=== PATIENT | male | born 1955 | race Caucasian/White ===

== ENCOUNTER 2020-01-06 15:04 | Inpatient (IN) ==
[2020-01-06] MEDS ORDERED: PIPERACILLIN/TAZOBACTAM 3.375 GM in DEXTROSE 5% 100 ML/100 ML BAG IV STA (16:41)
[2020-01-06] MEDS ORDERED: PIPERACILL/TAZOBAC CONSULT ACTIVE PRN ×2 (16:41→22:56)
[2020-01-06] MEDS ORDERED: VANCOMYCIN CONSULT ACTIVE PRN ×2 (16:41→22:56)
[2020-01-06] MEDS ORDERED: VANCOMYCIN HCL 2,000 MG in SODIUM CHLORIDE 0.9% 500 ML IV ONE (16:41)
[2020-01-06 18:46] LABS: Basophils # (auto) 0.04 K/uL (0-0.2); Basophils % (auto) 0.3 %; Eosinophils # (auto) 0.12 K/uL (0-0.5); Eosinophils % (auto) 0.9 %; Hematocrit (blood only) 40.4 % (42-52); Hemoglobin 14.3 g/dL (14.0-18.0); Immature Granulocytes # (auto) 0.04 K/uL (0.00-0.02); Immature Granulocytes % (auto) 0.3 %; Lymphocytes # (auto) 2.03 K/uL (1.2-3.4); Lymphocytes % (auto) 15.5 %; Mean Corpuscular Hemoglobin 32.3 pg (25-34); Mean Corpuscular Hgb Conc 35.4 g/dL (32-36); Mean Corpuscular Volume 91.2 fL (80-100); Mean Platelet Volume 8.9 fL (7.4-10.4); Monocytes # (auto) 0.95 K/uL (0.11-0.59); Monocytes % (auto) 7.3 %; Neutrophils # (auto) 9.92 K/uL (1.4-6.5); Neutrophils % (auto) 75.7 %; Platelet Count 268 K/uL (130-400); RDW Coefficient of Variation 12.5 % (11.5-14.5); RDW Standard Deviation 41.8 fL (36.4-46.3); Red Blood Count 4.43 M/uL (4.7-6.1)
[2020-01-06 19:06] LABS: Albumin Level 3.4 gm/dl (3.4-5.0); BUN Creatinine Ratio 18.1 (10-20); Calcium 9.4 mg/dl (8.5-10.1); Est GFR (African American) 92.7; Potassium 3.7 mmol/L (3.5-5.1)
[2020-01-06 19:08] LABS: Albumin Globulin Ratio 0.8 (0.9-2); Bilirubin,Total 0.4 mg/dl (0.2-1); Globulin 4.5 gm/dl (2.5-4.0); Total Protein 7.9 gm/dl (6.4-8.2)
--- NOTE | 2020-01-06 19:24 | Emergency Department Note ---
ED Visit Note I did evaluate and examine this patient myself. I did guide management for the patient. I agree with the PA's assessment as discussed. Please see the PAs dictation for further details. He appears to have a large abscess in his perineum. There is no crepitus. He has had fevers at home but no vomiting. He does not appear septic at this time. He has been on antibiotics at home. I did independently review the CT scan and blood work. His white count is elevated. CT shows cellulitis without evidence of drainable abscess. He will be hosp italized for IV antibiotics. He was given a dose of Zosyn IV here. .
[2020-01-06] MEDS ORDERED: IOVERSOL 100ml IV PRN (19:37)
--- NOTE | 2020-01-06 19:53 | CT Scan Report ---
Study: CT pelvis HISTORY: Groin and buttock infection FINDINGS: Nonobstructive bowel pattern. Normal appendix. Bladder is midline. No free fluid within the pelvic cul-de-sac. Significant soft tissue cellulitis medial aspect upper right thigh and perineum. No well-defined glut eal inflammatory process. No evidence for drainable abscess or collection. IMPRESSION: 1. Significant soft tissue/subcutaneous fat cellulitis involving the medial aspect of the upper right thigh, as well as perineum. 2. No evidence for drainable abscess or collection. 3. No evidence for muscular involvement. Electronically signed by: Xavi Weaver M.D. 01/06/2020 7:52 PM
--- NOTE | 2020-01-06 20:21 | Emergency Department Note ---
History of Present Illness General Chief complaint: Skin Problem Stated complaint: CYST Time Seen by Provider: 01/06/20 16:07 Source: patient Mode of arrival: ambulatory Limitations: no limitations History of Present Illness Maximum Pain Intensity: 7 This patient is a 64-year-old male who presents to the emergency department for evaluation of an infection of his buttock/groin. Patient states that 5 days ago, he noticed a small painful area under his right buttock. He was seen by his primary care provider and prescribed Keflex. He states that since then, the area has been progressively becoming larger, more red and painful. He has had some chills and reports a temperature up to 101F at home. He has been taking Tylenol for the fever. He reports generalized chills and aches. Patient was seen by his primary care provider and sent here to have the area possibly drained surgically. He rates his current discomfort a 7/10. He denies any history of similar infections. Patient has had a prior partial colectomy due to a history of diverticulitis performed by Dr. Dillard. Home Medications Home Medications Medication Instructions Recorded Confirmed Type enalapril-hydrochlorothiazide 1 tab PO PM 10/24/19 01/06/20 History cephalexin [Keflex] 500 mg PO QID 01/06/20 01/06/20 History Allergies Allergy/AdvReac Type Severity Reaction Status Date / Time No Known Allergies Allergy Verified 01/06/20 20:11 Past Med/Surg History Medical History Diverticular disease Hypertension Surgical History History of colon resection Social History Preferred Language: Tajik Communication Ability: Effective Meteorological Technician Required: No Beliefs That Will Affect Care: None marital status: / Current Living Situation: Alone Feels Safe at Home: Yes Smoking Status: Never smoker Do You Dip or Chew Tobacco: No ; Second Hand Exposure: No ; Hx Alcohol Use: No Hx Substance Use: No Review of Systems A total of 10 systems reviewed and were otherwise negative Physical Exam Vital Signs Vital Signs - 24 hr 01/06/20 15:53 01/06/20 16:38 01/06/20 18:38 Temperature 36.7 C Temperature Source Oral Pulse Rate 85 Pulse Rate [Right Finger] 82 83 Respiratory Rate 18 20 20 Respiratory Effort / Characteristics Non-Labored Spontaneous Non-Labored Spontaneous Non-Labored Spontaneous Respiratory Depth Normal Normal Normal Respiratory Pattern Regular Regular Blood Pressure 182/83 H Blood Pressure [Right Arm] 169/87 H 157/84 H Blood Pressure Mean 116 Blood Pressure Mean [Right Arm] 114 108 Blood Pressure Position Sitting Pulse Oximetry 96 98 97 Oxygen Delivery Method Room Air Room Air Room Air Sepsis Recent Fever Within 48 Hours Yes Sepsis New/Unexplained Change in Mental Status No Sepsis Action Taken by Nursing No Action Required VITALS: Vitals are noted on the nurse's note and reviewed by myself. GENERAL: This is a 64-year-old male, in no acute distress, nondiaphoretic, well- developed well-nourished. SKIN: There is extensive erythema, induration and tenderness in the right groin/perineum extending from the right buttock into the groin. There is no palpable fluctuance. No drainage. EARS: External auditory canals clear, tympanic membranes pearly calderón without erythema or effusion bilaterally. EYES: Pupils equal round and reactive to light and accommodation. MOUTH: Mucous membranes moist. NECK: Supple without nuchal rigidity. No lymphadenopathy. HEART: Regular rate and rhythm without murmurs gallops or rubs. LUNGS: Clear to auscultation bilaterally without wheezes, rales or rhonchi. ABDOMEN: Positive bowel sounds x 4. Soft, nontender to palpation. MUSCULOSKELETAL: Full range of motion throughout. NEURO: Patient was alert and oriented to person place and time. Course Consultations Consultation #1: Dr. Metz - [facility] hospitalist Administered Medications Acetaminophen (Tylenol) 650 mg PO Q4H PRN PRN Reason: pain/fever Stop: 02/05/20 22:55 Last Admin: 01/08/20 23:32 Dose: 650 mg Documented by: [id number] Admin: 01/08/20 13:42 Dose: 650 mg Documented by: [id number] Admin: 01/08/20 05:55 Dose: 650 mg Documented by: [id number] Admin: 01/07/20 22:20 Dose: 650 mg Documented by: [id number] Admin: 01/07/20 14:26 Dose: 650 mg Documented by: [id number] Admin: 01/07/20 06:05 Dose: 650 mg Documented by: [id number] Admin: 01/06/20 23:25 Dose: 650 mg Documented by: [id number] Enalapril Maleate (Vasotec) 10 mg PO PM GIOVANNY Stop: 02/05/20 22:59 Last Admin: 01/08/20 20:22 Dose: 10 mg Documented by: [id number] Admin: 01/07/20 22:15 Dose: 10 mg Documented by: [id number] Admin: 01/06/20 23:25 Dose: 10 mg Documented by: [id number] Hydrochlorothiazide (Hctz) 25 mg PO PM GIOVANNY Stop: 02/05/20 22:59 Last Admin: 01/08/20 20:21 Dose: 25 mg Documented by: [id number] Admin: 01/07/20 22:14 Dose: 25 mg Documented by: [id number] Admin: 01/06/20 23:26 Dose: 25 mg Documented by: [id number] Ioversol (Optiray 320 100ml) 94 ml IV ONCE PRN PRN Reason: Interaction Checking Stop: 01/10/20 19:36 Last Admin: 01/06/20 19:37 Dose: 94 ml Documented by: [id number] Morphine Sulfate (Morphine Sulfate) 2 mg IV Q3H PRN PRN Reason: Pain Stop: 01/22/20 00:49 Last Admin: 01/08/20 21:32 Dose: 2 mg Documented by: [id number] Admin: 01/08/20 00:54 Dose: 2 mg Documented by: [id number] Discontinued Medications Vancomycin HCl 2,000 mg/ (Sodium Chloride) 540 mls @ 200 mls/hr IV NOW ONE Stop: 01/06/20 19:22 Last Infusion: 01/06/20 21:43 Dose: 0 mls/hr Documented by: [id number] Admin: 01/06/20 18:34 Dose: 200 mls/hr Documented by: [id number] Piperacillin Sod/Tazobactam (Sod 3.375 gm/ Dextrose) 100 ml in 115 mls @ 230 mls/hr IV NOW STA Stop: 01/06/20 17:10 Last Infusion: 01/06/20 21:10 Dose: 0 mls/hr Documented by: [id number] Admin: 01/06/20 18:34 Dose: 230 mls/hr Documented by: [id number] Piperacillin Sod/Tazobactam (Sod 3.375 gm/ Dextrose) 115 mls @ 28.75 mls/hr IV Q8H GIOVANNY Stop: 01/14/20 00:00 Last Infusion: 01/07/20 12:00 Dose: 0 mls/hr Documented by: [id number] Admin: 01/07/20 08:11 Dose: 28.8 mls/hr Documented by: [id number] Infusion: 01/07/20 03:27 Dose: 0 mls/hr Documented by: [id number] Admin: 01/06/20 23:27 Dose: 28.8 mls/hr Documented by: [id number] Vancomycin HCl 1,250 mg/ (Sodium Chloride) 275 mls @ 125 mls/hr IV Q12H GIOVANNY Stop: 01/14/20 05:59 Last Infusion: 01/07/20 08:10 Dose: 0 mls/hr Documented by: [id number] Admin: 01/07/20 06:00 Dose: 125 mls/hr Documented by: [id number] Vancomycin HCl 1,250 mg/ (Sodium Chloride) 275 mls @ 125 mls/hr IV Q8H GIOVANNY Stop: 01/14/20 13:59 Last Infusion: 01/08/20 08:45 Dose: 0 mls/hr Documented by: [id number] Admin: 01/08/20 06:27 Dose: 125 mls/hr Documented by: [id number] Infusion: 01/08/20 00:44 Dose: 0 mls/hr Documented by: [id number] Infusion: 01/07/20 22:50 Dose: 125 mls/hr Documented by: [id number] Admin: 01/07/20 22:15 Dose: 125 mls/hr Documented by: [id number] Infusion: 01/07/20 16:33 Dose: 0 mls/hr Documented by: [id number] Admin: 01/07/20 13:45 Dose: 125 mls/hr Documented by: [id number] Vancomycin HCl 1,250 mg/ (Sodium Chloride) 275 mls @ 125 mls/hr IV Q12H GIOVANNY Stop: 01/14/20 19:59 Last Infusion: 01/09/20 10:29 Dose: 0 mls/hr Documented by: [id number] Admin: 01/09/20 08:08 Dose: 125 mls/hr Documented by: [id number] Infusion: 01/08/20 21:32 Dose: 0 mls/hr Documented by: [id number] Admin: 01/08/20 19:13 Dose: 125 mls/hr Documented by: [id number] Morphine Sulfate (Morphine Sulfate) 4 mg IV NOW STA Stop: 01/06/20 20:45 Last Admin: 01/06/20 21:05 Dose: 4 mg Documented by: [id number] Trimethoprim/Sulfamethoxazole (Septra Ds 800/160mg Tab) 1 tab PO NOW ONE Stop: 01/09/20 13:22 Last Admin: 01/09/20 14:12 Dose: 1 tab Documented by: [id number] Medical Decision Making Differential Diagnosis Differential diagnosis includes cellulitis, abscess, familia's gangrene, necrotizing fasciitis, perirectal abscess, among others. Home Medications Current Medication List: was personally reviewed by me Laboratory Data Attestation: I reviewed the patient's lab results. Result diagrams: 01/08/20 06:04 01/09/20 06:07 Lab Results 01/06/20 01/06/20 01/06/20 Range/Units 18:25 18:25 18:25 WBC 13.10 H (4.8-10.8) K/uL RBC 4.43 L (4.7-6.1) M/uL Hgb 14.3 (14.0-18.0) g/dL Hct 40.4 L (42-52) % MCV 91.2 (80-100) fL MCH 32.3 (25-34) pg MCHC 35.4 (32-36) g/dL RDW Std Deviation 41.8 (36.4-46.3) fL RDW Coeff of [place] 12.5 (11.5-14.5) % Plt Count 268 (130-400) K/uL MPV 8.9 (7.4-10.4) fL Immature Gran % (Auto) 0.3 % Neut % (Auto) 75.7 % Lymph % (Auto) 15.5 % [place] % (Auto) 7.3 % Eos % (Auto) 0.9 % Baso % (Auto) 0.3 % Immature Gran # (Auto) 0.04 H (0.00-0.02) K/uL Neut # (Auto) 9.92 H (1.4-6.5) K/uL Lymph # (Auto) 2.03 (1.2-3.4) K/uL [place] # (Auto) 0.95 H (0.11-0.59) K/uL Eos # (Auto) 0.12 (0-0.5) K/uL Baso # (Auto) 0.04 (0-0.2) K/uL Sodium 136 (136-145) mmol/L Potassium 3.7 (3.5-5.1) mmol/L Chloride 101 (98-107) mmol/L Carbon Dioxide 29 (21-32) mmol/L Anion Gap 6.0 (3-11) BUN 18 (7-18) mg/dl Creatinine 0.98 (0.6-1.4) mg/dl Est Cr Clr Drug Dosing 86.0 ml/min Est GFR ( Amer) 92.7 Est GFR (Non-Af Amer) 80.0 BUN/Creatinine Ratio 18.1 (10-20) Glucose 87 (70-99) mg/dl Lactate 1.1 (0.4-2.0) mmol/L Calcium 9.4 (8.5-10.1) mg/dl Total Bilirubin 0.4 (0.2-1) mg/dl AST 10 L (15-37) U/L ALT 20 (12-78) U/L Alkaline Phosphatase 74 (45-117) U/L Total Protein 7.9 (6.4-8.2) gm/dl Albumin 3.4 (3.4-5.0) gm/dl Globulin 4.5 H (2.5-4.0) gm/dl Albumin/Globulin Ratio 0.8 L (0.9-2) Imaging Data Attestation: I personally reviewed and interpreted this imaging study as follows: Radiologist's Impression: Study: CT pelvis HISTORY: Groin and buttock infection FINDINGS: Nonobstructive bowel pattern. Normal appendix. Bladder is midline. No free fluid within the pelvic cul-de-sac. Significant soft tissue cellulitis medial aspect upper right thigh and perineum. No well-defined gluteal inflammatory process. No evidence for drainable abscess or collection. IMPRESSION: 1. Significant soft tissue/subcutaneous fat cellulitis involving the medial aspect of the upper right thigh, as well as perineum. 2. No evidence for drainable abscess or collection. 3. No evidence for muscular involvement. Blood Pressure Blood Pressure Findings: Normal blood pressure Blood Pressure Disposition: did not require urgent referral MDM Narrative The patient is a 64-year-old male who presents today complaining of infection of the buttock/upper leg. On exam, patient appears to have an extensive cellulitis extending from the perineum into the upper thigh. Labs revealed leukocytosis, no anemia or concerning electrolyte abnormalities. Kidney function was within normal limits. Lactic acid was not elevated. Blood cultures were drawn and patient was started on vancomycin and Zosyn. CT of the pelvis was performed and showed extensive cellulitis with no abscess. Given the extent of this infection and failed outpatient therapy with cephalexin, the case was discussed with the [facility] hospitalist to evaluate the patient for further care. The patientwas independently evaluated by Dr. Shin, who agreed with my evaluation and treatment plan. Impression & Plan Cellulitis of perineum Discharge Plan Visit Data *Final* Discharge Date/Time: 01/06/20 22:31 Chief Complaint: Skin Problem Stated Complaint: CYST ED Provider: Andres Shin ED Midlevel Provider: Alison Cisneros Discharge Problem: Cellulitis of perineum Patient Disposition: Admitted As Inpatient Discharge Instructions Interventions: ED Discharge Assessment Last Done: 01/06/20 22:31
[2020-01-06] MEDS ORDERED: MoRPHine SULFATE 4 MG/ML 1 ML CARP\\VIAL IV STA (20:44)
--- NOTE | 2020-01-06 22:08 | History & Physical Report ---
Date of Service January 06, 2020 Assessment & Plan (1) Cellulitis of right thigh: Cellulitis of right thigh and perineum- Continue vancomycin IV and Zosyn IV begun in the ED CT of pelvis does not demonstrate any drainable area of fluid collection. Present on Admission?: Yes (2) Cellulitis of perineum: See above Present on Admission?: Yes (3) Hypertension: Continue enalapril/HCTZ daily. Present on Admission?: Yes History of Present Illness Chief Complaint: The patient presents to the emergency department due to concerns regarding an infection in his buttock and groin area Primary Care Provider: Ron Eagle MD The patient is a 64-year-old male with a past medical history including hypertension and macular hole left eye, who presents to the emergency department with 5 days of worsening right upper thigh and groin and perineum redness, swelling, pain. 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 He was then seen by his PCP and placed on Keflex 500 mg p.o. 4 times daily, and when his lesion continued to spread, he presents emergency department tonight. 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 Beliefs That Will Affect Care: None Current Living Situation: Alone Feels Safe at Home: Yes Smoking Status: Never smoker Do You Dip or Chew Tobacco: No ; Second Hand Exposure: No ; Hx Alcohol Use: No Hx Substance Use: No Review of Systems Review of Systems: The patient denies chest pain, palpitations, shortness of breath, dyspnea on exertion, cough, sore throat, nausea, vomiting, diarrhea , constipation, abdominal pain, blood in urine or stool, dysuria, urinary frequency or urgency, lightheadedness, dizziness, headache, memory loss, loss of consciousness, rash, abnormal bruising or bleeding, imbalance, focal or generalized weakness, numbness or tingling in arms or legs, back or neck pain, or night sweats. The review of systems is otherwise negative other than for that already noted above, and at least 10 systems have been reviewed. Physical Exam Physical Exam: The patient is awake, alert and oriented 3, looks mildly diaphoretic, normocephalic and atraumatic, lying in bed and in no acute distress. HEENT--PERRL, EOMI, mucous membranes and oropharynx dry. Neck--supple. No JVD. No bruits. Thyroid normal, trachea midline, no adenopathy. Heart--normal S1 and S2. No murmurs, rubs or gallops. Lungs--clear bilaterally, no respiratory distress, no accessory muscle use. Abdomen--normal bowel sounds and soft. Nontender. Nondistended. Extremities/ Dermatologic--right upper extremity medial aspect of thigh deep erythema, and perineum with similar erythema and mild fluctuance. Neurologic--cranial nerves II through XII grossly intact. Rheumatologic--normal range of motion. Psychiatric--normal affect. Results & Data Vital Signs (Past 12 Hours) Vital Signs Temp Pulse Pulse Resp BP BP Pulse Ox 01/06/20 21:05 89 20 148/84 H 98 01/06/20 18:38 83 20 157/84 H 97 01/06/20 16:38 82 20 169/87 H 98 01/06/20 15:53 98.1 F 85 18 182/83 H 96 Laboratory Results Laboratory Results WBC 13.10 K/uL (4.8-10.8) H 01/06/20 18:25 RBC 4.43 M/uL (4.7-6.1) L 01/06/20 18:25 Hgb 14.3 g/dL (14.0-18.0) 01/06/20 18:25 Hct 40.4 % (42-52) L 01/06/20 18:25 MCV 91.2 fL (80-100) 01/06/20 18:25 MCH 32.3 pg (25-34) 01/06/20 18:25 MCHC 35.4 g/dL (32-36) 01/06/20 18:25 RDW Std Deviation 41.8 fL (36.4-46.3) 01/06/20 18:25 RDW Coeff of [place] 12.5 % (11.5-14.5) 01/06/20 18: Plt Count 268 K/uL (130-400) 01/06/20 18:25 MPV 8.9 fL (7.4-10.4) 01/06/20 18:25 Immature Gran % (Auto) 0.3 % 01/06/20 18:25 Neut % (Auto) 75.7 % 01/06/20 18:25 Lymph % (Auto) 15.5 % 01/06/20 18:25 [place] % (Auto) 7.3 % 01/06/20 18:25 Eos % (Auto) 0.9 % 01/06/20 18:25 Baso % (Auto) 0.3 % 01/06/20 18:25 Immature Gran # (Auto) 0.04 K/uL (0.00-0.02) H 01/06/20 18:25 Neut # (Auto) 9.92 K/uL (1.4-6.5) H 01/06/20 18:25 Lymph # (Auto) 2.03 K/uL (1.2-3.4) 01/06/20 18:25 [place] # (Auto) 0.95 K/uL (0.11-0.59) H 01/06/20 18:25 Eos # (Auto) 0.12 K/uL (0-0.5) 01/06/20 18:25 Baso # (Auto) 0.04 K/uL (0-0.2) 01/06/20 18:25 Sodium 136 mmol/L (136-145) 01/06/20 18:25 Potassium 3.7 mmol/L (3.5-5.1) 01/06/20 18:25 Chloride 101 mmol/L (98-107) 01/06/20 18:25 Carbon Dioxide 29 mmol/L (21-32) 01/06/20 18:25 Anion Gap 6.0 (3-11) 01/06/20 18:25 BUN 18 mg/dl (7-18) 01/06/20 18:25 Creatinine 0.98 mg/dl (0.6-1.4) 01/06/20 18:25 Est Cr Clr Drug Dosing 86.0 ml/min 01/06/20 18:25 Est GFR ( Amer) 92.7 01/06/20 18:25 Est GFR (Non-Af Amer) 80.0 01/06/20 18:25 BUN/Creatinine Ratio 18.1 (10-20) 01/06/20 18:25 Glucose 87 mg/dl (70-99) 01/06/20 18:25 Lactate 1.1 mmol/L (0.4-2.0) 01/06/20 18:25 Calcium 9.4 mg/dl (8.5-10.1) 01/06/20 18:25 Total Bilirubin 0.4 mg/dl (0.2-1) 01/06/20 18:25 AST 10 U/L (15-37) L 01/06/20 18:25 ALT 20 U/L (12-78) 01/06/20 18:25 Alkaline Phosphatase 74 U/L (45-117) 01/06/20 18:25 Total Protein 7.9 gm/dl (6.4-8.2) 01/06/20 18:25 Albumin 3.4 gm/dl (3.4-5.0) 01/06/20 18:25 Globulin 4.5 gm/dl (2.5-4.0) H 01/06/20 18:25 Albumin/Globulin Ratio 0.8 (0.9-2) L 01/06/20 18:25 Diagnostic Findings [place], [place] [phone] CT Scan Report Patient: SKINNY LOCKE JAdmit Date: 01/06/20 MR#: [id number]: [address] [facility] [address] Acct ID:[id number]: Date: 1955[facility] Zip: [id number] Age: 64Location: ED Sex: M Room/Bed: Att Phy:Diagnosis: CYST Corina Phy: Ron Moore M.D.Service Date: 01/06/20 Fam Phy:Interpreting Phy: Xavi Weaver MD Admit Phy: Ordering Phy: Alison Cisneros PA-C cc: ~ Study: CT pelvis HISTORY: Groin and buttock infection FINDINGS: Nonobstructive bowel pattern. Normal appendix. Bladder is midline. No free fluid within the pelvic cul-de-sac. Significant soft tissue cellulitis medial aspect upper right thigh and perineum. No well-defined gluteal inflammatory process. No evidence for drainable abscess or collection. IMPRESSION: 1. Significant soft tissue/subcutaneous fat cellulitis involving the medial aspect of the upper right thigh, as well as perineum. 2. No evidence for drainable abscess or collection. 3. No evidence for muscular involvement. Electronically signed by: Xavi Weaver M.D. 01/06/2020 7:52 PM Dictated: 01/06/201948 Transcribed: 01/06/201948 Code Status & VTE Plan Code Status Full code VTE Prophylaxis Plan VTE Prophylaxis will be ordered: Yes PG Care Time/CCT Total # of Minutes Spent Total Time Spent with Patient: Total time spent is greater than 50% in coordination of care (as documented) at patient's floor/unit and/or counseling patient: Coding Level of Care Code 27199 Initial Inpt Care Lvl 2 Diagnoses Cellulitis of right thigh L03.115 Cellulitis of perineum L03.315 Hypertension I10
[2020-01-06] MEDS ORDERED: ALUMINUM/MAGNESIUM SUSP 30 ML UDC PO PRN (22:56)
[2020-01-06] MEDS ORDERED: ONDANSETRON INJ 2 MG/ML 2 ML VIAL IV PRN (22:56)
[2020-01-06] MEDS ORDERED: VANCOMYCIN HCL 1,000 MG in SODIUM CHLORIDE 0.9% 250 ML IV SCH (22:56)
[2020-01-06] MEDS ORDERED: MAGNESIUM HYDROXIDE SUSP 30 ML UDC PO PRN (22:56)
[2020-01-06] MEDS: ENALAPRIL MALEATE 10 MG TAB PO SCH (23:25)
[2020-01-06] MEDS: ACETAMINOPHEN 325 MG TAB PO PRN (23:25)
[2020-01-06] MEDS: hydroCHLOROthiazide 25 MG TAB PO SCH (23:26)
[2020-01-06] MEDS: PIPERACILLIN/TAZOBACTAM 3.375 GM in DEXTROSE 5% 100 ML IV SCH (23:27)
[2020-01-07] MEDS ORDERED: VANCOMYCIN HCL 1,250 MG in SODIUM CHLORIDE 0.9% 250 ML IV SCH (06:00)
[2020-01-07] MEDS: ACETAMINOPHEN 325 MG TAB PO PRN ×3 (06:05→22:20)
[2020-01-07] MEDS: PIPERACILLIN/TAZOBACTAM 3.375 GM in DEXTROSE 5% 100 ML IV SCH (08:11)
[2020-01-07 09:00] LABS: Basophils # (auto) 0.04 K/uL (0-0.2); Basophils % (auto) 0.3 %; Eosinophils # (auto) 0.13 K/uL (0-0.5); Eosinophils % (auto) 1.1 %; Hematocrit (blood only) 40.7 % (42-52); Hemoglobin 13.9 g/dL (14.0-18.0); Immature Granulocytes # (auto) 0.05 K/uL (0.00-0.02); Immature Granulocytes % (auto) 0.4 %; Lymphocytes # (auto) 1.83 K/uL (1.2-3.4); Lymphocytes % (auto) 15.9 %; Mean Corpuscular Hemoglobin 31.7 pg (25-34); Mean Corpuscular Hgb Conc 34.2 g/dL (32-36); Mean Corpuscular Volume 92.9 fL (80-100); Monocytes # (auto) 0.91 K/uL (0.11-0.59); Monocytes % (auto) 7.9 %; Neutrophils # (auto) 8.58 K/uL (1.4-6.5); Neutrophils % (auto) 74.4 %; Platelet Count 272 K/uL (130-400); RDW Coefficient of Variation 12.8 % (11.5-14.5); RDW Standard Deviation 43.4 fL (36.4-46.3); Red Blood Count 4.38 M/uL (4.7-6.1); White Blood Count 11.54 K/uL (4.8-10.8)
--- NOTE | 2020-01-07 09:32 | Pharmacy Report ---
Pharmacy Abx Initial Consult - Date of Service January 07, 2020 - Pharmacy Dosing Scope Date of Consult: 01/06/2020 Consultation requested by: Dr. Metz Pharmacy is consulted to initiate vancomycin/zosyn IV dosing therapy, order appropriate labs and adjust drug dose/frequency. - Subjective The patient is a 64 year old M admitted on 01/06/20 22:07 with worsening cellulitis in R thigh, perineum, and groin area. No abscess visible on CT. - Objective Height: 5 ft 10 in Weight: 94.1 kg Vital Signs (Past 12hrs): Vital Signs Temp Pulse Pulse Pulse Resp BP BP 01/07/20 07:20 36.8 C 64 16 112/62 01/07/20 00:40 01/06/20 23:00 36.8 C 83 18 01/06/20 22:56 01/06/20 22:31 81 20 177/88 H BP Pulse Ox 01/07/20 07:20 94 01/07/20 00:40 128/74 01/06/20 23:00 189/94 H 98 01/06/20 22:56 174/91 H 01/06/20 22:31 98 Lab Results (24hrs): Laboratory Tests (24 Hours) 01/07/20 01/06/20 01/06/20 08:28 18:25 18:25 WBC 11.54 H 13.10 H Neut # (Auto) 8.58 H 9.92 H Creatinine 0.98 Est Cr Clr Drug Dosing 86.0 Micro Results: 01/06/20 18:00 Aerobic Blood Culture - Pending Blood Anaerobic Blood Culture - Pending 01/06/20 18:10 Aerobic Blood Culture - Pending Blood Anaerobic Blood Culture - Pending - Risk Factors for Resistance * Antimicrobial use within the last 90 days (Keflex) - Assessment & Plan Assessment 64 year old M admitted with worsening cellulitis in R thigh, perineum, and groin area. He was placed on Keflex per PCP. When not improved, PCP sent patient to the hospital. CT negative for abscess. Broad spectrum antibiotics started. Plan vancomycin/Zosyn for treatment of cellulitis Vancomycin IV * Patient meets criteria for vancomycin AUC dosing nomogram * AUC/NYASIA is the preferred PK/PD target for vancomycin * Target AUC/NYASIA = 400-600 * AUC guided dosing is effective and associated with decreased risk of nephrotoxicity * Trough levels poorly correlate with AUC/NYASIA and trough monitoring has been associated with increased risk of nephrotoxicity Piperacillin/tazobactam * 3.375 g bolus administered over 30 minutes, then 3.375 g IV extended infusion every 8 hours for CrCl greater than 20 mL/min OR every 12 hours for CrCl 20 mL/min or less and dialysis. Pharmacy will continue to follow and will adjust dose/frequency as necessary. Thank you.
--- NOTE | 2020-01-07 12:38 | Hospitalist Progress Note ---
Date of Service January 07, 2020 Assessment & Plan (1) Cellulitis of perineum: 64 yo M with HTN here for worsening cellulitis of perineum which failed outpatient treatment of keflex. 1. Perineal Cellulitis - CT pelvis showed no muscle involvement, no abscess formation, cellulitis of fat on right perineum and medial thigh - discontinued zosyn, continuing with vanc for mrsa coverage - monitor progress 2. HTN - continuing home medications of enalapril 10 mg PO DVT: SCDs Diet: regular Code: Full code (2) Hypertension: Admission and Anticipated Discharge Date Admission Date: January 06, 2020 Supervising Physician Co-Signing Physician Notes I personally examined the patient and verified all peralta points of history and exam, discussed case, and agree with decision making with Dr Geogre. Feeling better. Notes over the last few hours she feels like his pain is starting to improve. Pleased with progress so far. Vitals noted, in general he is awake and alert pleasant no distress. HEENT normocephalic atraumatic mucous membranes moist. Breathing unlabored no accessory muscle use good effort. Skin shows medial right buttock to be erythematous with a bright maroon somewhat tender although not exquisitely so, with a thin yellow layer on top that seems to be weeping, no focal palpable fluid collections. Cellulitis of the medial buttockfailed Keflex. Given nonpurulent as far as no drainable abscess, suspect resistant strep greater than resistant staph. Currently vancomycin would cover for both. He is showing improvement, given the high risk area that was infected we will definitely want to continue vancomycin until there is clear and ongoing improvement. Fortunately CT did not show extension deeper or any drainable abscess. Otherwise as above. Subjective 64yo M with HTN otherwise healthy, admitted to the hospital after worsening cellulitis and failure of outpatient treatment of 4-5 days of keflex. At this time, describing baseline pain with radiation from perineum posteriorly towards buttocks and anteriorly to right inguinal region. Experienced fevers and night sweats at beginning of illness prior to starting antibiotics; no longer experiencing them. Denies any cough, chest pain, palpitations. No previous infection similar to this, no allergies to antibiotics, previous surgeries include colectomy for diverticulitis. Review of Systems Constitutional: no fever, no chills, no body aches, no fatigue, no weakness and no anorexia Respiratory: no cough and no dyspnea Cardiovascular: no chest pain, no dyspnea on exertion and no palpitations Gastrointestinal: no abdominal pain, no nausea, no vomiting, no constipation, no diarrhea/loose stools and no blood in stools Genitourinary: + genital pain (perineum/buttock region) Physical Exam Constitutional: well developed and well nourished; no acute distress Skin: Red, swollen, inflamed area of perineum to the inferior buttock on right side with clear demarcation of erythema. No fluctuance, no open draining pustules or abscesses. No crossing over midline. No involvement of scrotum or penis. Results & Data ([facility]) Vital Signs (Past 12 Hours) Vital Signs Temp Pulse Resp BP BP Pulse Ox 01/07/20 07:20 36.8 C 64 16 112/62 94 01/07/20 00:40 128/74 01/07/20 01/07/20 01/07/20 Range/Units 08:40 08:28 08:28 WBC 11.54 H (4.8-10.8) K/uL RBC 4.38 L (4.7-6.1) M/uL Hgb 13.9 L (14.0-18.0) g/dL Hct 40.7 L (42-52) % MCV 92.9 (80-100) fL MCH 31.7 (25-34) pg MCHC 34.2 (32-36) g/dL RDW Std Deviation 43.4 (36.4-46.3) fL RDW Coeff of [place] 12.8 (11.5-14.5) % Plt Count 272 (130-400) K/uL MPV 9.0 (7.4-10.4) fL Immature Gran % (Auto) 0.4 % Neut % (Auto) 74.4 % Lymph % (Auto) 15.9 % [place] % (Auto) 7.9 % Eos % (Auto) 1.1 % Baso % (Auto) 0.3 % Immature Gran # (Auto) 0.05 H (0.00-0.02) K/uL Neut # (Auto) 8.58 H (1.4-6.5) K/uL Lymph # (Auto) 1.83 (1.2-3.4) K/uL [place] # (Auto) 0.91 H (0.11-0.59) K/uL Eos # (Auto) 0.13 (0-0.5) K/uL Baso # (Auto) 0.04 (0-0.2) K/uL Sodium (136-145) mmol/L Potassium (3.5-5.1) mmol/L Chloride (98-107) mmol/L Carbon Dioxide (21-32) mmol/L Anion Gap (3-11) BUN (7-18) mg/dl Creatinine (0.6-1.4) mg/dl Est Cr Clr Drug Dosing ml/min Est GFR ( Amer) Est GFR (Non-Af Amer) BUN/Creatinine Ratio (10-20) Glucose (70-99) mg/dl Lactate (0.4-2.0) mmol/L Calcium (8.5-10.1) mg/dl Total Bilirubin (0.2-1) mg/dl AST (15-37) U/L ALT (12-78) U/L Alkaline Phosphatase (45-117) U/L Total Protein (6.4-8.2) gm/dl Albumin (3.4-5.0) gm/dl Globulin (2.5-4.0) gm/dl Albumin/Globulin Ratio (0.9-2) Nasal Screen MRSA (PCR) Negative (Negative) Hepatitis C Ab Screen Neg (Neg) 01/06/20 01/06/20 01/06/20 Range/Units 18:25 18:25 18:25 WBC 13.10 H (4.8-10.8) K/uL RBC 4.43 L (4.7-6.1) M/uL Hgb 14.3 (14.0-18.0) g/dL Hct 40.4 L (42-52) % MCV 91.2 (80-100) fL MCH 32.3 (25-34) pg MCHC 35.4 (32-36) g/dL RDW Std Deviation 41.8 (36.4-46.3) fL RDW Coeff of [place] 12.5 (11.5-14.5) % Plt Count 268 (130-400) K/uL MPV 8.9 (7.4-10.4) fL Immature Gran % (Auto) 0.3 % Neut % (Auto) 75.7 % Lymph % (Auto) 15.5 % [place] % (Auto) 7.3 % Eos % (Auto) 0.9 % Baso % (Auto) 0.3 % Immature Gran # (Auto) 0.04 H (0.00-0.02) K/uL Neut # (Auto) 9.92 H (1.4-6.5) K/uL Lymph # (Auto) 2.03 (1.2-3.4) K/uL [place] # (Auto) 0.95 H (0.11-0.59) K/uL Eos # (Auto) 0.12 (0-0.5) K/uL Baso # (Auto) 0.04 (0-0.2) K/uL Sodium 136 (136-145) mmol/L Potassium 3.7 (3.5-5.1) mmol/L Chloride 101 (98-107) mmol/L Carbon Dioxide 29 (21-32) mmol/L Anion Gap 6.0 (3-11) BUN 18 (7-18) mg/dl Creatinine 0.98 (0.6-1.4) mg/dl Est Cr Clr Drug Dosing 86.0 ml/min Est GFR ( Amer) 92.7 Est GFR (Non-Af Amer) 80.0 BUN/Creatinine Ratio 18.1 (10-20) Glucose 87 (70-99) mg/dl Lactate 1.1 (0.4-2.0) mmol/L Calcium 9.4 (8.5-10.1) mg/dl Total Bilirubin 0.4 (0.2-1) mg/dl AST 10 L (15-37) U/L ALT 20 (12-78) U/L Alkaline Phosphatase 74 (45-117) U/L Total Protein 7.9 (6.4-8.2) gm/dl Albumin 3.4 (3.4-5.0) gm/dl Globulin 4.5 H (2.5-4.0) gm/dl Albumin/Globulin Ratio 0.8 L (0.9-2) Nasal Screen MRSA (PCR) (Negative) Hepatitis C Ab Screen (Neg) Resident Activity Tracking Resident Involvement: Resident Care Provided Care Provided: Adult Hospital Medicine
[2020-01-07] MEDS: VANCOMYCIN HCL 1,250 MG in SODIUM CHLORIDE 0.9% 250 ML IV SCH ×2 (13:45→22:15)
--- NOTE | 2020-01-07 15:50 | Electrocardiogram Report ---
Test Reason : Blood Pressure : / mmHG Vent. Rate : 081 BPM Atrial Rate : 081 BPM P-R Int : 166 ms QRS Dur : 088 ms QT Int : 382 ms P-R-T Axes : 035 -02 050 degrees QTc Int : 443 ms Normal sinus rhythm Normal ECG When compared with ECG of 06-JAN-2015 10:16, No significant change was found Confirmed by Leon Green ([id number]) on 01/07/2020 3:49:54 PM Referred By: Ron Eagle Confirmed By:Leon Green
--- NOTE | 2020-01-07 19:05 | Billing Data ---
Date of Service January 07, 2020 Coding Level of Care Code 22639 Subseq Hosp Care Lvl 3
[2020-01-07] MEDS: hydroCHLOROthiazide 25 MG TAB PO SCH (22:14)
[2020-01-07] MEDS: ENALAPRIL MALEATE 10 MG TAB PO SCH (22:15)
[2020-01-08] MEDS ORDERED: MoRPHine SULFATE 4 MG/ML 1 ML CARP\\VIAL IV PRN (00:51)
[2020-01-08] MEDS: MoRPHine SULFATE 2 MG/ML CARP IV PRN ×2 (00:54→21:32)
[2020-01-08] MEDS ORDERED: VANCOMYCIN TROUGH ONE (05:30)
[2020-01-08] MEDS: ACETAMINOPHEN 325 MG TAB PO PRN ×3 (05:55→23:32)
[2020-01-08 06:20] LABS: Basophils # (auto) 0.04 K/uL (0-0.2); Basophils % (auto) 0.5 %; Eosinophils # (auto) 0.19 K/uL (0-0.5); Eosinophils % (auto) 2.2 %; Hematocrit (blood only) 43.2 % (42-52); Hemoglobin 14.8 g/dL (14.0-18.0); Immature Granulocytes # (auto) 0.05 K/uL (0.00-0.02); Immature Granulocytes % (auto) 0.6 %; Lymphocytes # (auto) 2.62 K/uL (1.2-3.4); Lymphocytes % (auto) 30.5 %; Mean Corpuscular Hemoglobin 32.3 pg (25-34); Mean Corpuscular Hgb Conc 34.3 g/dL (32-36); Mean Corpuscular Volume 94.3 fL (80-100); Mean Platelet Volume 8.7 fL (7.4-10.4); Monocytes # (auto) 0.68 K/uL (0.11-0.59); Monocytes % (auto) 7.9 %; Neutrophils # (auto) 5.02 K/uL (1.4-6.5); Neutrophils % (auto) 58.3 %; Platelet Count 301 K/uL (130-400); RDW Coefficient of Variation 12.7 % (11.5-14.5); RDW Standard Deviation 43.6 fL (36.4-46.3); Red Blood Count 4.58 M/uL (4.7-6.1)
[2020-01-08] MEDS: VANCOMYCIN HCL 1,250 MG in SODIUM CHLORIDE 0.9% 250 ML IV SCH ×2 (06:27→19:13)
[2020-01-08 06:52] LABS: Creatinine Clr Calc Pharmacy 87.2 ml/min; Est GFR (African American) 95.1
--- NOTE | 2020-01-08 09:25 | Pharmacy Report ---
Pharmacy Abx Dose Short Note - Date of Service January 08, 2020 - Assessment & Plan Assessment 64 year old M receiving vancomycin for treatment of cellulitis in R thigh, perineum, and groin area Day # 01/09 of antimicrobial therapy. Zosyn was discontinued yesterday. SCr remains stable at 0.96 WBC trending down BCx - NGTD Plan Vancomycin * Trough level of 24.1 mcg/mL is supratherapeutic * Change to 1250 mg IV every 12 hours - next dose at 2000 (when level expected to be ~15) * Goal trough level for cellulitis : 10 to 15 mcg/mL * Trough level ordered for: 01/10/20 @ 0730 (prior to 4th dose of new regimen) * SCr ordered daily through 01/09 Pharmacy will continue to follow and will adjust dose/frequency as necessary. Thank you.
--- NOTE | 2020-01-08 09:55 | Hospitalist Progress Note ---
Date of Service January 08, 2020 Assessment & Plan (1) Cellulitis of perineum: 64 yo M with PMH of HTN here for worsening cellulitis of perineum which failed outpatient treatment of keflex. 1. Perineal Cellulitis - CT pelvis showed no muscle involvement, no abscess formation, cellulitis of fat on right perineum and medial thigh - discontinued zosyn, continuing with vanc for mrsa coverage - Morphine 2mg for pain - monitor progress, improving 2. HTN - continuing home medications of enalapril/hctz 10/25 mg PO DVTP: SCDs Diet: regular Code: Full code (2) Hypertension: Admission and Anticipated Discharge Date Admission Date: January 06, 2020 Supervising Physician Co-Signing Physician Notes I personally examined the patient and verified all peralta points of history and exam, discussed case, and agree with decision making with Dr Johnston. Continues to feel better, less swollen and painful. Able to walk around more without as much pain. Vitals noted, in general he is awake and alert pleasant no distress. HEENT normocephalic atraumatic mucous membranes moist. Breathing unlabored no accessory muscle use good effort. Skin shows medial right buttock to be erythematous, a little less brightly than yesterday, with patches of normal skin color, the skin is still quite thickened but there are still no palpable areas of fluid collection or fluctuance, the central area has a superficial degree of ulceration but far less yellowish discharge. Overall area has shrunk in size Cellulitis of the medial buttockfailed Keflex. Given nonpurulent as far as no drainable abscess, suspect resistant strep greater than resistant staph (although both could be possible). Currently vancomycin would cover for both. Continues to show improvement, given the high risk area that was infected we will definitely want to continue vancomycin for now, and then once he shows ongoing improvement, can consider discharge home on something along the lines of Bactrim to complete 2 weeks of treatment, with close PCP follow-up. Otherwise as above. Subjective Patient feels subjectively improved today. He notes that he is able to more freely move the area, and it is less tender to touch. Has been cleaning the area well, and notes moderate fluid seeping from skin, clear/yellow in nature Review of Systems Review of Systems: All systems reviewed & are unremarkable except as noted in HPI & below Constitutional: no fever and no chills Respiratory: no cough and no dyspnea Cardiovascular: no chest pain Gastrointestinal: no nausea, no vomiting and no change in bowel habits Genitourinary: + genital pain (perineum/buttock region); no dysuria Physical Exam Constitutional: well developed and well nourished; no acute distress Respiratory: normal respiratory effort, lungs clear to auscultation Cardiovascular: RRR, no murmur, no edema Skin: Red, swollen, inflamed area of perineum to the inferior buttock on right side with clear demarcation of erythema. +induration with seeping clear/yellowish fluid. No crossing over midline. No involvement of scrotum or penis. Results & Data ([facility]) Vital Signs (Past 12 Hours) Vital Signs Temp Pulse Resp BP Pulse Ox 01/08/20 07:29 97.7 F 69 16 116/71 96 01/07/20 22:50 98.4 F 72 18 132/82 98 Laboratory Results 01/08/20 01/08/20 01/08/20 Range/Units 06:04 06:04 06:04 WBC 8.60 (4.8-10.8) K/uL RBC 4.58 L (4.7-6.1) M/uL Hgb 14.8 (14.0-18.0) g/dL Hct 43.2 (42-52) % MCV 94.3 (80-100) fL MCH 32.3 (25-34) pg MCHC 34.3 (32-36) g/dL RDW Std Deviation 43.6 (36.4-46.3) fL RDW Coeff of [place] 12.7 (11.5-14.5) % Plt Count 301 (130-400) K/uL MPV 8.7 (7.4-10.4) fL Immature Gran % (Auto) 0.6 % Neut % (Auto) 58.3 % Lymph % (Auto) 30.5 % [place] % (Auto) 7.9 % Eos % (Auto) 2.2 % Baso % (Auto) 0.5 % Immature Gran # (Auto) 0.05 H (0.00-0.02) K/uL Neut # (Auto) 5.02 (1.4-6.5) K/uL Lymph # (Auto) 2.62 (1.2-3.4) K/uL [place] # (Auto) 0.68 H (0.11-0.59) K/uL Eos # (Auto) 0.19 (0-0.5) K/uL Baso # (Auto) 0.04 (0-0.2) K/uL Creatinine 0.96 (0.6-1.4) mg/dl Est Cr Clr Drug Dosing 87.2 ml/min Est GFR ( Amer) 95.1 Est GFR (Non-Af Amer) 82.0 Nasal Screen MRSA (PCR) (Negative) Vancomycin Trough 24.1 (See Comment) mcg/ml 01/07/20 Range/Units 08:40 WBC (4.8-10.8) K/uL RBC (4.7-6.1) M/uL Hgb (14.0-18.0) g/dL Hct (42-52) % MCV (80-100) fL MCH (25-34) pg MCHC (32-36) g/dL RDW Std Deviation (36.4-46.3) fL RDW Coeff of [place] (11.5-14.5) % Plt Count (130-400) K/uL MPV (7.4-10.4) fL Immature Gran % (Auto) % Neut % (Auto) % Lymph % (Auto) % [place] % (Auto) % Eos % (Auto) % Baso % (Auto) % Immature Gran # (Auto) (0.00-0.02) K/uL Neut # (Auto) (1.4-6.5) K/uL Lymph # (Auto) (1.2-3.4) K/uL [place] # (Auto) (0.11-0.59) K/uL Eos # (Auto) (0-0.5) K/uL Baso # (Auto) (0-0.2) K/uL Creatinine (0.6-1.4) mg/dl Est Cr Clr Drug Dosing ml/min Est GFR ( Amer) Est GFR (Non-Af Amer) Nasal Screen MRSA (PCR) Negative (Negative) Vancomycin Trough (See Comment) mcg/ml Medications Administered Current Inpatient Medications Acetaminophen (Tylenol) 650 mg PO Q4H PRN PRN Reason: pain/fever Stop: 02/05/20 22:55 Last Admin: 01/08/20 05:55 Dose: 650 mg Documented by: Al Hydrox/Mg Hydrox/Simethicone (Maalox) 30 ml PO Q6H PRN PRN Reason: Dyspepsia Stop: 02/05/20 22:55 Enalapril Maleate (Vasotec) 10 mg PO PM GIOVANNY Stop: 02/05/20 22:59 Last Admin: 01/07/20 22:15 Dose: 10 mg Documented by: Hydrochlorothiazide (Hctz) 25 mg PO PM GIOVANNY Stop: 02/05/20 22:59 Last Admin: 01/07/20 22:14 Dose: 25 mg Documented by: Vancomycin HCl 1,250 mg/ (Sodium Chloride) 275 mls @ 125 mls/hr IV Q12H GIOVANNY Stop: 01/14/20 19:59 Ioversol (Optiray 320 100ml) 94 ml IV ONCE PRN PRN Reason: Interaction Checking Stop: 01/10/20 19:36 Last Admin: 01/06/20 19:37 Dose: 94 ml Documented by: Magnesium Hydroxide (Milk Of Magnesia) 30 ml PO Q6H PRN PRN Reason: Constipation Stop: 02/05/20 22:55 Miscellaneous Information (Consult) 1 ea N/A UD PRN PRN Reason: Consult Stop: 02/05/20 22:55 Morphine Sulfate (Morphine Sulfate) 2 mg IV Q3H PRN PRN Reason: Pain Stop: 01/22/20 00:49 Last Admin: 01/08/20 00:54 Dose: 2 mg Documented by: Morphine Sulfate (Morphine Sulfate) 4 mg IV Q3H PRN PRN Reason: Pain Stop: 01/22/20 00:50 Ondansetron HCl (Zofran) 4 mg IV Q6H PRN PRN Reason: Nausea Stop: 02/05/20 22:55 Resident Activity Tracking Resident Involvement: Resident Care Provided Care Provided: Adult Hospital Medicine
--- NOTE | 2020-01-08 16:53 | Billing Data ---
Date of Service January 08, 2020 Coding Level of Care Code 01211 Subseq Hosp Care Lvl 3
[2020-01-08] MEDS: hydroCHLOROthiazide 25 MG TAB PO SCH (20:21)
[2020-01-08] MEDS: ENALAPRIL MALEATE 10 MG TAB PO SCH (20:22)
[2020-01-09 07:06] LABS: Creatinine Clr Calc Pharmacy 69.8 ml/min; Est GFR (African American) 72.6; Est GFR (Non-African American) 62.6
[2020-01-09] MEDS: VANCOMYCIN HCL 1,250 MG in SODIUM CHLORIDE 0.9% 250 ML IV SCH (08:08)
[2020-01-09] MEDS ORDERED: SULFAMETHOXAZOLE/TRIMETHOPRIM DS 800/160MG TAB PO ONE (13:21)
--- NOTE | 2020-01-09 14:22 | Hospitalist Progress Note ---
Date of Service January 09, 2020 Assessment & Plan (1) Cellulitis of perineum: 64 yo M with PMH of HTN here for worsening cellulitis of perineum which failed outpatient treatment of 4.5 days of keflex. 1. Perineal Cellulitis - CT pelvis showed no muscle involvement, no abscess formation, cellulitis of fat on right perineum and medial thigh - 3 days ov IV vanc received for mrsa coverage. In light of clinical improvement, will convert to PO Bactrim DS BID and Amoxicillin 500 TID x 7 days total (Started 01/09/20) - Pain control prn. - monitor progress, improving 2. HTN - continuing home medications of enalapril/hctz 10/25 mg PO DVTP: SCDs Diet: regular Code: Full code Dispo: expect discharge on 01/10/20, barring worsening of clinical course. (2) Hypertension: Admission and Anticipated Discharge Date Admission Date: January 06, 2020 Supervising Physician Co-Signing Physician Notes I personally saw and examined the patient. I verified all peralta points and agree with resident Yen Hernandez with the following exceptions and/or additions: None Patient feels much improved without fevers or chills. Cellulitis on exam mostly resolved at this time with perianal dark erythema (appears inflammatory only) and firm swelling without warmth, no collection. Discussed antibiotics and recommended switching to PO while admitted given failure of PO keflex. Unclear if failed Keflex due to collection that was draining in ER prior to CT or resistant organism to Keflex. Either way will cover for MRSA. Subjective Patient feels subjectively improved today. He notes that he is able to more freely move without discomfort, and it continues to be less tender to touch. Has been cleaning the area well, but states he does this up to 4 times daily, and notes a lessening in the amount of fluid seeping from skin, which is clear/yellow in nature. Review of Systems Review of Systems: All systems reviewed & are unremarkable except as noted in HPI & below Constitutional: no fever, no chills and no weakness Respiratory: no cough and no dyspnea Cardiovascular: no chest pain Gastrointestinal: no nausea, no vomiting and no constipation Genitourinary: + genital pain (perineal region); no dysuria and no testicle pain Integumentary: as per Subjective / HPI Neurologic: no loss of sensation and no paresthesia Physical Exam Constitutional: well developed and well nourished; no acute distress Respiratory: normal respiratory effort, lungs clear to auscultation Cardiovascular: RRR, no murmur, no edema Skin: Red, swollen, inflamed area of R perineum to the inferior buttock on right side with clear demarcation of erythema. +induration, which is greatly improved, with seeping clear fluid. No crossing over midline. No involvement of scrotum or penis. Lessening of erythema and less tender to palpation. Results & Data ([facility]) Vital Signs (Past 12 Hours) Vital Signs Temp Pulse Resp BP Pulse Ox 01/09/20 07:45 97.7 F 64 16 118/62 94 Laboratory Results 01/09/20 Range/Units 06:07 Creatinine 1.20 (0.6-1.4) mg/dl Est Cr Clr Drug Dosing 69.8 ml/min Est GFR ( Amer) 72.6 Est GFR (Non-Af Amer) 62.6 Medications Administered Current Inpatient Medications Acetaminophen (Tylenol) 650 mg PO Q4H PRN PRN Reason: pain/fever Stop: 02/05/20 22:55 Last Admin: 01/08/20 23:32 Dose: 650 mg Documented by: Al Hydrox/Mg Hydrox/Simethicone (Maalox) 30 ml PO Q6H PRN PRN Reason: Dyspepsia Stop: 02/05/20 22:55 Amoxicillin (Amoxil) 500 mg PO TID [facility] Stop: 01/16/20 13:59 Last Admin: 01/09/20 15:07 Dose: 500 mg Documented by: Enalapril Maleate (Vasotec) 10 mg PO PM GIOVANNY Stop: 02/05/20 22:59 Last Admin: 01/08/20 20:22 Dose: 10 mg Documented by: Hydrochlorothiazide (Hctz) 25 mg PO PM GIOVANNY Stop: 02/05/20 22:59 Last Admin: 01/08/20 20:21 Dose: 25 mg Documented by: Ioversol (Optiray 320 100ml) 94 ml IV ONCE PRN PRN Reason: Interaction Checking Stop: 01/10/20 19:36 Last Admin: 01/06/20 19:37 Dose: 94 ml Documented by: Magnesium Hydroxide (Milk Of Magnesia) 30 ml PO Q6H PRN PRN Reason: Constipation Stop: 02/05/20 22:55 Morphine Sulfate (Morphine Sulfate) 2 mg IV Q3H PRN PRN Reason: Pain Stop: 01/22/20 00:49 Last Admin: 01/08/20 21:32 Dose: 2 mg Documented by: Morphine Sulfate (Morphine Sulfate) 4 mg IV Q3H PRN PRN Reason: Pain Stop: 01/22/20 00:50 Ondansetron HCl (Zofran) 4 mg IV Q6H PRN PRN Reason: Nausea Stop: 02/05/20 22:55 Trimethoprim/Sulfamethoxazole (Septra Ds 800/160mg Tab) 1 tab PO Q12 GIOVANNY Stop: 01/16/20 20:59 Resident Activity Tracking Resident Involvement: Resident Care Provided Care Provided: Adult Hospital Medicine
[2020-01-09] MEDS: AMOXICILLIN 500 MG CAP PO SCH ×2 (15:07→20:57)
[2020-01-09] MEDS: ACETAMINOPHEN 325 MG TAB PO PRN ×2 (16:55→22:40)
[2020-01-09] MEDS ORDERED: VANCOMYCIN TROUGH ONE (19:30)
[2020-01-09] MEDS: ENALAPRIL MALEATE 10 MG TAB PO SCH (20:57)
[2020-01-09] MEDS: SULFAMETHOXAZOLE/TRIMETHOPRIM DS 800/160MG TAB PO SCH (20:57)
[2020-01-09] MEDS: hydroCHLOROthiazide 25 MG TAB PO SCH (20:58)
[2020-01-09] MEDS ORDERED: IBUPROFEN 200 MG TAB PO PRN (21:25)
[2020-01-09] MEDS ORDERED: TRAMADOL HCL 50 MG TABLET PO PRN (21:27)
[2020-01-10] MEDS: ACETAMINOPHEN 325 MG TAB PO PRN ×2 (04:27→13:43)
[2020-01-10] MEDS ORDERED: VANCOMYCIN TROUGH ONE (07:30)
[2020-01-10 07:50] LABS: Basophils # (auto) 0.05 K/uL (0-0.2); Basophils % (auto) 0.6 %; Eosinophils # (auto) 0.13 K/uL (0-0.5); Eosinophils % (auto) 1.5 %; Hematocrit (blood only) 42.7 % (42-52); Hemoglobin 14.9 g/dL (14.0-18.0); Immature Granulocytes # (auto) 0.03 K/uL (0.00-0.02); Immature Granulocytes % (auto) 0.4 %; Lymphocytes % (auto) 25.9 %; Mean Corpuscular Hemoglobin 32.1 pg (25-34); Mean Corpuscular Hgb Conc 34.9 g/dL (32-36); Mean Platelet Volume 8.8 fL (7.4-10.4); Monocytes # (auto) 0.75 K/uL (0.11-0.59); Monocytes % (auto) 8.8 %; Neutrophils # (auto) 5.34 K/uL (1.4-6.5); Neutrophils % (auto) 62.8 %; Platelet Count 309 K/uL (130-400); RDW Coefficient of Variation 12.5 % (11.5-14.5); RDW Standard Deviation 42.1 fL (36.4-46.3); Red Blood Count 4.64 M/uL (4.7-6.1)
[2020-01-10 08:18] LABS: Creatinine Clr Calc Pharmacy 69.2 ml/min; Est GFR (African American) 71.9
[2020-01-10] MEDS: AMOXICILLIN 500 MG CAP PO SCH ×2 (09:22→13:43)
[2020-01-10] MEDS: SULFAMETHOXAZOLE/TRIMETHOPRIM DS 800/160MG TAB PO SCH (09:23)
--- NOTE | 2020-01-10 10:23 | Discharge Summary ---
Date of Service January 10, 2020 Admission HPI Per Admitting Provider The patient is a 64-year-old male with a past medical history including hypertension and macular hole left eye, who presents to the emergency department with 5 days of worsening right upper thigh and groin and perineum redness, swelling, pain. 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 He was then seen by his PCP and placed on Keflex 500 mg p.o. 4 times daily, and when his lesion continued to spread, he presents emergency department tonight. Admission Exam Per Admitting Provider The patient is awake, alert and oriented 3, looks mildly diaphoretic, normocephalic and atraumatic, lying in bed and in no acute distress. HEENT--PERRL, EOMI, mucous membranes and oropharynx dry. Neck--supple. No JVD. No bruits. Thyroid normal, trachea midline, no adenopathy. Heart--normal S1 and S2. No murmurs, rubs or gallops. Lungs--clear bilaterally, no respiratory distress, no accessory muscle use. Abdomen--normal bowel sounds and soft. Nontender. Nondistended. Extremities/ Dermatologic--right upper extremity medial aspect of thigh deep erythema, and perineum with similar erythema and mild fluctuance. Neurologic--cranial nerves II through XII grossly intact. Rheumatologic--normal range of motion. Psychiatric--normal affect. Principal Diagnosis Cellulitis Discharge Exam General: A&Ox3. NAD. Cooperative. Skin: Right upper proximal medial thigh and perineum with mild but improved erythema and skin thickening. Without fluctuance. Nontender to palpation. Grade 1 superficial erosion/skin peeling over an area of approximately 1 cm without exudate or discharge. HEENT: Atraumatic, normocephalic. Pulm: CTAB A&P. -wheezes, -rales, -rhonchi. Symmetrical chest rise. No increase work of breathing. No respiratory distress. Cardiac: RRR, -mrg. Radial pulses intact and symmetrical. Abdominal: Nontender, nondistended, soft. BS present. Extremity: Finger flexion/extension, wrist flexion/extension, elbow flexion/extension, ankle plantar flexion/dorsiflexion, knee flexion/extension, hip flexion intact with 5/5 strength bilaterally and symmetrical. Sensation in fingertips and toes grossly intact to soft touch. Discharge Data Allergies Allergy/AdvReac Type Severity Reaction Status Date / Time No Known Allergies Allergy Verified 01/06/20 20:11 Consultations 01/06/20 20:13 ED Decision to Admit Stat Ordered Studies 01/06/20 16:32 CT pelvis w/IV con only Stat Hospital Course (1) Cellulitis of perineum: Scotty Irizarry" is a 64-year-old male with a past medical history of hypertension who presented to the hospital with 5 days of right groin and perineal cellulitis which failed outpatient Keflex treatment. Perineal/RUE cellulitis Scotty presented with cellulitis of the right groin and perineum. His symptoms had worsened despite 4.5 days of outpatient Keflex treatment. On admission a CT pelvis was obtained and showed no muscle involvement, no abscess formation, and findings consistent with cellulitis of the skin and fat on the right paramedian and medial thigh. He had a leukocytosis to 11.54 and was afebrile on admission. He was placed on empiric IV vancomycin and received 3 days of empiric therapy before being narrowed to p.o. Bactrim DS with amoxicillin. His leukocytosis, erythema and pain improved over his hospital course, and his pain was 1/10 "minimal" at time of discharge. He was not requiring narcotics or other analgesia at time of discharge. He was discharged to complete 7 additional days of Bactrim with additional amoxicillin for enhance strep coverage as outpatient. A follow-up was arranged for him with his primary care provider to be seen and reevaluated in 3 days from discharge. He was afebrile at time of discharge. HTN Scotty was continued on his home dose of enalapril and hydrochlorothiazide during admission, and was discharged without changes to his antihypertensive regimen. DVT prophylaxis DVT prophylaxis was maintained with SCDs during admission. Patient was able to ambulate and was with good strength once pain control was achieved. (2) Hypertension: Total Time Total Time Spent Total Time Spent (In Minutes): See Attending Documentation Discharge Plan Discharge Items Patient Disposition: Home - Self-Care Reason For Visit: CELLULITIS OF RIGHT THIGH AND PERINEUM Discharge Diagnosis: R Thigh/Groin Cellulitis Activity: Resume your previous activity Non-emergency contact: Primary Care Provider Call non-emergency contact if: you have any medication questions, your symptoms worsen, your pain is not controlled, your pain is worsening, your pain is unusual for you, your pain is concerning for you and you have a fever Follow-up/Referrals: Ron Eagle MD [Primary Care Provider] - 01/13/20 10:00 am (An appointment has been made for you with Dr. Eagle for 10am on Sunday01/13/2020) Diet: Regular Addtl Attending Provider Instructions: You were seen in the hospital for an infection of your right groin which did not improve with outpatient antibiotics (Keflex). You were treated with IV antibiotics which were then narrowed to oral antibiotics. You had improvement during her hospital stay. Follow-up reassessment by her outpatient provider will be required. You have been prescribed 2 antibiotics as noted below. You have been prescribed an antibiotic, Bactrim. Please take Bactrim DS twice daily for 7 additional days (until 01/16/2020) to complete a 10-day course of antibiotics including those received during hospital admission. If you develop any shortness of breath, difficulty breathing, rash, swelling, wheezing, worsening pain, worsening fever, signs of allergic reaction including itching, or other new or concerning symptoms please contact your primary care provider, or call 911 for transport to and reevaluation in the emergency department if you are very concerned. You have been prescribed an antibiotic, amoxicillin. Please take amoxicillin 500mg by mouth three times daily for 7 additional days (until 01/16/2020) to complete a 10-day course of antibiotics including those received in the hospital. If you develop any shortness of breath, difficulty breathing, rash, swelling, wheezing, worsening pain, worsening fever, signs of allergic reaction including itching, or other new or concerning symptoms please contact your primary care provider, or call 911 for transport to and reevaluation in the emergency department if you are very concerned. A Follow-up appointment has been scheduled for you with your primary care provider Dr. Heller on 01/13/2020 at 10 AM. If you need to change his appointment, please call his office [phone]. If you develop new, worsening, or concerning symptoms including any shortness of breath, difficulty breathing, rash, swelling, wheezing, worsening pain, worsening fever, signs of allergic reaction including itching, chest pain, chest pressure, or other symptoms please contact your primary care provider or call 911 for transport to and reevaluation in the emergency department if you are very concerned. Pending Studies at Discharge: No Stand-Alone Forms: [facility], Smoking Cessation Medications and DC Order Prescriptions: New amoxicillin 500 mg Capsule 500 mg PO TID 7 Days Qty: 21 RF: 0 sulfamethoxazole-trimethoprim 800-160 mg Tablet 1 tab PO Q12 7 Days Qty: 14 RF: 0 Continued enalapril-hydrochlorothiazide 10-25 mg Tablet 1 tab PO PM RF: 0 Discontinued cephalexin [Keflex] 500 mg Capsule 500 mg PO QID RF: 0 Discharge Orders: Discharge Order (Routine); Ordered 01/10/20 Ordered By: Miko Echevarria/Other Patient Handouts: Choices Low Salt, Exercise Healthy Heart, Function Eye, Cellulitis Dc, Hypertension Dc, Foods Heart Healthy Admission Data Admit Date/Time: 01/06/20 22:07 Attending Provider: Stevie Bazzi Admit Provider: Dmitry Metz Primary Care Provider: Ron Eagle Other Providers: Dmitry Metz Other Interventions: Discharge Summary Assessment (RN) Last Done: 01/10/20 15:21 DC Date/Time DO NOT enter until pt leaves facility: 01/10/20 15:52 Supervising Physician Co-Signing Physician Notes I personally saw and examined the patient. I verified all peralta points and agree with resident physician Miko Singletary MD with the following exceptions and/or additions: None Cellulitis mostly resolved at this time, left with a lot of inflammatory tissue however. Patient appeared quite anxious about not knowing exactly what the bacteria is, tried to reassure that we do not know this most of the time but his cellulitis is getting better. Total time spent with discharging patient independent of resident: 35 minutes, 50 percent of that time is spent discussing with the patient the diagnosis, prognosis, risk and benefits, instructions for management, and education.
== END 2020-01-10 15:52 | disposition home or self-care (01) | DRG 603 ==
LOC: ED 15:04 → SUATTDRO 22:07 → 3W 22:07